=== PATIENT | male | born 1950 | race Caucasian/White ===

== ENCOUNTER 2018-07-26 07:25 | Day surgery (SDC) | payer MEDICARE ==
[2018-07-25 15:24] VITALS: BMI 27.4
[2018-07-26] MEDS ORDERED: ROPIVACAINE HCL 0.5% 30ML VIAL ONE (07:39)
--- NOTE | 2018-07-26 08:27 | HP ---
[facility]ellite [facility] - Chief Complaint Chief Complaint: left shoulder pain - Past Medical History Allergies/Adverse Reactions: Allergies Allergy/AdvReac Type Severity Reaction Status Date / Time No Known Drug Allergies Allergy Verified 08/08/12 07:55 - Current Medications Current Medications: Home Medications Medication Instructions Recorded Aspirin [Aspirin EC] 81 mg PO DAILY 07/25/18 Hydrocodone/Acetaminophen 1 - 2 each PO Q6H #40 tablet MDD 6 07/26/18 [Hydrocodone-Acetamin 5-325 mg] Satellite Physical Exam - Physical Examination General Appearance: Well Nourished, Well Developed, Alert & Oriented x3 ENT: Clear Lung: Normal air movement Heart: Regular rate & rhythm Extremities: Other (left shoulder- + ttp, decr rom, + neer, + broderick, + empty can, nvi MRI + rct) Neurological: Intact, Alert, Oriented Satellite Impression/Plan - Impression/Plan Impression: left shoulder rct Operative Procedure: left shoulder arthroscopy with RCR, SAD Date to be Performed: 07/26/18
[2018-07-26] MEDS ORDERED: MIDAZOLAM HCL 2 MG/2 ML SINGLE DOSE VIAL ONE ×3 (08:33→08:59)
[2018-07-26] MEDS ORDERED: PROPOFOL 20 ML ONE (08:33)
[2018-07-26] MEDS ORDERED: ceFAZolin SODIUM 1 GM VIAL IVPB ONE (09:35)
[2018-07-26] MEDS ORDERED: ceFAZolin SODIUM 1 GM VIAL ONE (09:38)
[2018-07-26] MEDS ORDERED: ONDANSETRON 4 MG/2 ML VIAL IVPUSH PRN (10:35)
[2018-07-26] MEDS ORDERED: oxyCODONE HCL 5 MG TABLET PO PRN (10:35)
--- NOTE | 2018-07-26 10:42 | OP ---
Operative Note - Note: Operative Date: 07/26/18 Pre-Operative Diagnosis: left shoulder impingement syndrome and RTC tear Operation: left shoulder arthroscopy, subacromial decompression, distal clavicle excision, arthroscopic RTC repair Implants: Arthex Swvel lock anchor x 2, fiber wire x 5 Surgeon: Frankie Lawrence [employer] Operator Chief: Sascha Miller Anesthesiologist/MARITIME OFFICER: Alexia Cohn Anesthesia: General, Local Specimens Removed: shavings Estimated Blood Loss (mls): 60 Blood Volume Replaced (mls): 0 Fluid Volume Replaced (mls): 700 Operative Report Dictated: Yes
[2018-07-26] MEDS ORDERED: LACTATED RINGERS SOLUTION 1,000 ML IV SCH (10:45)
--- NOTE | 2018-07-26 11:42 | OP ---
DATE OF OPERATION: 07/26/2018 PREOPERATIVE DIAGNOSIS: Left shoulder impingement syndrome and rotator cuff tear. POSTOPERATIVE DIAGNOSIS: Left shoulder impingement syndrome and rotator cuff tear. PROCEDURE: Left shoulder arthroscopy, subacromial decompression, distal clavicle excision, arthroscopic rotator cuff repair. SURGEON: Geno Faith MD CORN HUSKER: JERRY Sweet ANESTHESIOLOGIST: Alexia Cohn CRNA ANESTHESIA: Left interscalene block with LMA anesthesia. DRAINS: None. COMPLICATIONS: None. BLOOD LOSS: Minimal. BLOOD GIVEN: None. FLUID REPLACEMENT: 700 mL INDICATIONS: This patient is a 68-year-old male with preoperative diagnosis of left shoulder impingement syndrome and a 5-month-old rotator cuff acute on chronic tear. After understanding the potential risks, complications, alternatives, and benefits of surgery versus nonsurgical treatment, the patient elected to undergo this procedure. PROCEDURE: The patient was brought to the operating room. Peripheral IV placed. IV sedation given. Two grams of IV Ancef was given. A left interscalene block was performed. LMA anesthesia was induced. The patient was placed into the beach-chair position with ample padding throughout. The left upper extremity was prepped and draped in a sterile fashion, the bony landmarks marked out with a marking pen, and a posterior portal established. A diagnostic glenohumeral arthroscopy was performed. The patient had an obvious full-thickness rotator cuff tear. There was a crescent shape to it that looked repairable. The patient had a lot of fraying of the biceps tendon, undersurface of the rotator cuff, and the labrum and therefore an anterior portal was established under direct visualization. Using a spinal needle, a number-15 scalpel blade, and a Green cannula, and using the shaver, I debrided these structures inside the joint. 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 The labrum had a significant, degenerative-type fraying from the 8 o'clock to 12 o'clock position. Next, our attention turned to the subacromial space. A lateral portal was established under direct visualization. The patient had tremendous amounts of inflammatory bursitis. A Green cannula was introduced into the subacromial space and a soft tissue bursectomy/extensive debridement was done with the ArthroCare wand. This revealed a large subacromial bony spur and a moderate-sized subclavicular bony spur, both which were taken down with a 5.5-mm oval bur. The bony decompression was then fine tuned in reverse with the shaver. All debris was removed with the shaver. After the subacromial decompression and distal clavicle excision, the top surface of the rotator cuff was directly visualized, seen to have a large, full-thickness, crescent-shaped tear, but I was able to mobilize it using the grasper bringing it down to the position where it is supposed to be. Next, under standard arthroscopic technique, the subdeltoid bursa was cleared out with the ArthroCare wand. The bony band on the humerus was cleaned with the ArthroCare wand and stirred up with the shaver to stimulate healing. Next, we put in 3 anterior FiberWire sutures which were put down through a SwiveLock anchor into the head and then 2 posterior ones also put down through a second SwiveLock. Overall, the rotator cuff came down well; it covered the humerus quite well. There were no complications during the case. He tolerated it quite well. The area was copiously irrigated and washed out. All instrumentation and debris removed. The arthroscopy portals were closed with 3-0 nylon sutures. The area was then washed, and dried, covered with Aquacel. He was put into a shoulder immobilizer. Total operative time was about 1 hour. There were no complications during the case. The patient tolerated the procedure quite well and was bought to the ambulatory recovery room in stable condition. GENO FAITH M.D. [id number]
[2018-07-26 12:05] VITALS: TEMP 97.3
[2018-07-26 14:31] VITALS: BP 126/76; PULSE 80
== END 2018-07-26 14:00 | disposition home or self-care (01) ==
LOC: JASU-SURG 07:25
PROVIDERS: ATTEND Orthopaedic Surgery
PROC: 0PBB4ZZ Excision of Left Clavicle, Percutaneous Endoscopic Approach (ICD-10-PCS; 2018-07-26)
PROC: 0RNK4ZZ Release Left Shoulder Joint, Percutaneous Endoscopic Approach (ICD-10-PCS; principal; 2018-07-26 09:00)
PROC: 0LQ24ZZ Repair Left Shoulder Tendon, Percutaneous Endoscopic Approach (ICD-10-PCS; 2018-07-26 09:00)
DX: M75.42 Impingement syndrome of left shoulder (principal); M75.102 Unspecified rotator cuff tear or rupture of left shoulder, not specified as traumatic
CPT/HCPCS: 82962; 94760